=== PATIENT | female | born 1965 ===

== ENCOUNTER → 2017-10-15 | Outpatient (CLI) | payer OTHER ==
[~2017-10-15] MED LIST: ASCO10004 PO; CA C1TAB35 PO; MAGN250T9 PO; MILK140C PO; TURM500C4 PO; ZINC50TA40 PO; [UNRECOGNIZED DRUG - OTHER] NAS
== END ==
LOC: STAR 12:11
PROVIDERS: ATTEND Otolaryngology
DX: Z02.9 Encounter for administrative examinations, unspecified (principal)

== ENCOUNTER 2017-10-19 10:15 | Day surgery (SDC) | payer OTHER ==
[~2017-10-19] VITALS: Ht 165.1 cm; Wt 75.0 kg
[2017-10-19] MEDS ORDERED: LACTATED RINGERS 1,000 ML IV SCH (10:27)
[2017-10-19] MEDS ORDERED: OXYMETAZOLINE NASAL SPRAY 0.05%, 15ML ONE (12:18)
[2017-10-19] MEDS ORDERED: BUPIVACAINE/PF 0.25% ONE (12:18)
[2017-10-19] MEDS ORDERED: COCAINE TOPICAL SOLN 4%, 4ML ONE (12:18)
[2017-10-19] MEDS ORDERED: EPINEPHRINE 1 MG/ML, 1ML ONE (12:18)
[2017-10-19] MEDS ORDERED: BACITRACIN OINT 500U/GM, 15 GM ONE (12:18)
[2017-10-19] MEDS ORDERED: MIDAZOLAM 1 MG/ML, 2ML ONE (12:42)
[2017-10-19] MEDS ORDERED: FENTANYL PF 250 MCG/5ML ONE ×2 (12:42→15:48)
[2017-10-19] MEDS ORDERED: SUCCINYLCHOLINE 20 MG/ML, 10ML ONE (12:43)
[2017-10-19] MEDS ORDERED: LIDOCAINE-MPF 2% ,5ML ONE (12:43)
[2017-10-19] MEDS ORDERED: PROPOFOL 10 MG/ML, 20ML ONE (12:43)
[2017-10-19] MEDS ORDERED: ONDANSETRON 2MG/ML, 2ML ONE (12:49)
[2017-10-19] MEDS ORDERED: DEXAMETHASONE 4 MG/ML, 5ML ONE (12:49)
[2017-10-19] MEDS ORDERED: SCOPOLAMINE PATCH, 1.5MG PATCH.TD72 TD ONE (12:51)
[2017-10-19] MEDS ORDERED: ACETAMINOPHEN 325 MG TABLET PO PRN (14:00)
[2017-10-19] MEDS ORDERED: morphine SULFATE 10 MG/ML, 1ML IV PRN (14:00)
[2017-10-19] MEDS ORDERED: LABETALOL 5MG/ML, 20ML IV PRN (14:00)
[2017-10-19] MEDS ORDERED: OXYcodone 5 MG/5 ML ORAL.SOL UDC PO PRN (14:00)
[2017-10-19] MEDS ORDERED: hydrALAzine 20 MG/ML, 1ML IV PRN (14:00)
[2017-10-19] MEDS ORDERED: MEPERIDINE/PF 25MG/0.5ML IVPush PRN (14:00)
[2017-10-19] MEDS ORDERED: PROMETHAZINE 25 MG/ML, 1ML IV PRN (14:00)
[2017-10-19] MEDS ORDERED: OXYcodone 5 MG/5 ML ORAL.SOL UDC ONE (14:29)
[2017-10-19] MEDS ORDERED: FENTANYL PF 100 MCG/2ML ONE (14:29)
[2017-10-19] MEDS: FENTANYL PF 100 MCG/2ML IV PRN ×2 (14:30→14:40)
[2017-10-19] MEDS ORDERED: ACETAMINOPHEN 650 MG/20.3 ML UDC ONE (14:47)
[2017-10-19] MEDS ORDERED: PROMETHAZINE 25MG TABLET PO PRN (16:00)
[2017-10-19] MEDS ORDERED: ONDANSETRON ODT 4 MG PO PRN (16:00)
[2017-10-19] MEDS ORDERED: PROMETHAZINE 25MG TABLET ONE (16:02)
[2017-10-19] MEDS ORDERED: ONDANSETRON ODT 4 MG ONE (16:02)
== END 2017-10-19 18:15 ==
LOC: OUT 10:15
PROVIDERS: ATTEND Otolaryngology
DX: J32.9 Chronic sinusitis, unspecified (principal); J34.3 Hypertrophy of nasal turbinates; J34.89 Other specified disorders of nose and nasal sinuses
CPT/HCPCS: 30140; 42821; 88304; J0171; J0330; J1100; J2250; J2405; J2704; J3010; J3490; Q0162; Q0169